=== PATIENT | female | born 1930 | race Caucasian/White ===

== ENCOUNTER 2017-08-23 16:47 | Emergency (ER) | payer OTHER ==
[~2017-08-23] VITALS: Ht 147.3 cm; Wt 60.0 kg
[2017-08-23] MEDS ORDERED: ASPI-516 CHEW (17:09)
[2017-08-23] MEDS ORDERED: SIMV20TA PO (17:09)
[2017-08-23] MEDS ORDERED: CALC1TAB12 PO (17:09)
[2017-08-23 17:10] VITALS: BP 175/91; PULSE 86; RESP 18; TEMP 98.5; O2SAT 98
[2017-08-23] MEDS ORDERED: ONDANSETRON ODT 4 MG TAB PO ONE (17:15)
--- NOTE | 2017-08-23 17:44 | RADRPT ---
EXAM DATE/TIME: 08/23/2017 17:20 [facility] COMPARISON: No previous studies available for comparison. INDICATIONS : Fell backwards hitting head on pavement.Pain back of head and neck. RADIATION DOSE: 57.57 CTDIvol (mGy) MEDICAL HISTORY : Hypercholesterolemia. Osteopenia SURGICAL HISTORY : Non listed ENCOUNTER: Initial ACUITY: 1 day PAIN SCALE: 3/10 LOCATION: occipital TECHNIQUE: Multiple contiguous axial images were obtained of the head. Using automated exposure control and adj ustment of the mA and/or kV according to patient size, radiation dose was kept as low as reasonably a chievable to obtain optimal diagnostic quality images. DICOM format image data is available electro nically for review and comparison. FINDINGS: CEREBRUM: The ventricles are normal for age. No evidence of midline shift, mass lesion, hemorrhage or acute in farction. No extra-axial fluid collections are seen. POSTERIOR FOSSA: The cerebellum and brainstem are intact. The 4th ventricle is midline. The cerebellopontine angle i s unremarkable. EXTRACRANIAL: The visualized portion of the orbits is intact. SKULL: The calvaria is intact. Occipital cephalhematoma No evidence of skull fracture. CONCLUSION: Intracranial cranial contents are unremarkable. Occipital cephalhematoma without fracture Darren Snyder MD FACR on August 23, 2017 at 17:41 Board Certified Radiologist. This report was verified electronically.
--- NOTE | 2017-08-23 17:59 | RADRPT ---
EXAM DATE/TIME: 08/23/2017 17:20 [facility] COMPARISON: No previous studies available for comparison. INDICATIONS : Fell backwards hitting her head on the pavement. RADIATION DOSE: 25.29 CTDIvol (mGy) MEDICAL HISTORY : Hypercholesterolemia. Osteopenia SURGICAL HISTORY : Non listed ENCOUNTER: Initial ACUITY: 1 day PAIN SCALE: 3/10 LOCATION: posterior neck TECHNIQUE: Volumetric scanning of the cervical spine was performed. Multiplanar reconstructions in the sagittal, coronal and oblique axial planes were performed. Using automated exposure control and adjustment o f the mA and/or kV according to patient size, radiation dose was kept as low as reasonably achievable to obtain optimal diagnostic quality images. DICOM format image data is available electronically f or review and comparison. FINDINGS: VERTEBRAE: Normal vertebral body height. ALIGNMENT: No evidence of subluxation. C2-C3: The bony spinal canal is normal in size. No evidence of disc bulge or herniation. The neural forami na are bilaterally patent. C3-C4: The bony spinal canal is normal in size. No evidence of disc bulge or herniation. The neural forami na are bilaterally patent. C4-C5: There isridging present with mild bilateral neural foramina encroachment. C5-C6: Interspace which is present mild spinal stenosis and moderate bilateral neural foramina encroachment. C6-C7: The bony spinal canal is normal in size. No evidence of disc bulge or herniation. The neural forami na are bilaterally patent. C7-T1: The bony spinal canal is normal in size. No evidence of disc bulge or herniation. The neural forami na are bilaterally patent. Prominent 1.7 cm left thyroid mass. CONCLUSION: 1. Degenerative changes, negative for fracture 2. 1.7 cm left thyroid mass. Darren Snyder MD FACR on August 23, 2017 at 17:43 Board Certified Radiologist. This report was verified electronically.
[2017-08-23] MEDS ORDERED: CYCL10TA PO (18:21)
[2017-08-23] MEDS ORDERED: ZOFR4TAB PO (18:21)
--- NOTE | 2017-08-23 18:21 | PD ---
HPI Chief Complaint: Fall Time Seen by Provider: 17:00 Travel History International Travel<30 days: No Contact w/Intl Traveler<30days: No Traveled to known affect area: No History of Present Illness HPI Patient presents with complaints of head trauma. States she felt her was falling forward and reached to grab him when in actuality he was falling backward onto him and then her. She fell to her bottom and back hitting her head on the cement. Denies loss of consciousness. Reports mild nausea. Complains of neck pain. PFSH Past Medical History High Cholesterol: Yes Musculoskeletal: Yes (OSTEOPENIA) Influenza Vaccination: No ?: Not Social History Alcohol Use: Yes (SOCIALLY) Tobacco Use: No Substance Use: No Allergies-Medications (Allergen,Severity, Reaction): Coded Allergies: Sulfa (Sulfonamide Antibiotics) (Verified Allergy, Intermediate, Rash, ) Reported Meds & Prescriptions Reported Meds & Active Scripts Active Reported Calcium 500 +D (Calcium Carbonate-Cholecalciferol) 500-400 Mg-Unit Tab 1 Tab PO DAILY Aspirin 81 Mg Chew 81 Mg CHEW DAILY Simvastatin 20 Mg Tab 20 Mg PO DAILY Review of Systems General / Constitutional: No: Fever Eyes: No: Visual changes HENT: No: Headaches Cardiovascular: No: Chest Pain or Discomfort Respiratory: No: Shortness of Breath Gastrointestinal: No: Abdominal Pain Genitourinary: No: Dysuria Musculoskeletal: No: Pain Skin: No Rash Neurologic: No: Weakness Psychiatric: No: Depression Endocrine: No: Polydipsia Hematologic/Lymphatic: No: Easy Bruising Physical Exam Narrative GENERAL: Well-nourished, well-developed patient. SKIN: Focused skin assessment warm/dry. HEAD: Normocephalic. Hematoma noted to the occipital region Examination of cervical spine reveals midline and bilateral paraspinous pain with good upper extremity strength EYES: No scleral icterus. No injection or drainage. Pupils equal round reactive light accommodation NECK: Supple, trachea midline. No JVD or lymphadenopathy. CARDIOVASCULAR: Regular rate and rhythm without murmurs, gallops, or rubs. RESPIRATORY: Breath sounds equal bilaterally. No accessory muscle use. GASTROINTESTINAL: Abdomen soft, non-tender, nondistended. MUSCULOSKELETAL: No cyanosis, or edema. BACK: Nontender without obvious deformity. No CVA tenderness. Data Data Last Documented VS Vital Signs Date Time Temp Pulse Resp B/P (MAP) Pulse Ox O2 Delivery O2 Flow Rate FiO2 08/23/17 17:10 98.5 86 18 175/91 (119) [address] Brain W/O Iv Contrast(Rout) (08/23/17 ) Ct Cerv Spine W/O Contrast (08/23/17 ) Ondansetron Odt (Zofran Odt) (08/23/17 17:15) Ice/Cold Pack (08/23/17 17:10) MDM Medical Decision Making Medical Screen Exam Complete: Yes Emergency Medical Condition: Yes Differential Diagnosis Hematoma, intracranial bleed, vertebral fracture Narrative Course Assessment plan discussed with patient and daughter at bedside. CT of the brain was unremarkable for intracranial process, CT of cervical spine did not reveal any acute fractures. Nausea controlled with Zofran. Diagnosis Primary Impression: Scalp hematoma Qualified Codes: S00.03XA - Contusion of scalp, initial encounter Additional Impression: Cervical strain Qualified Codes: S16.1XXA - Strain of muscle, fascia and tendon at neck level , initial encounter Patient Instructions: General Instructions Additional Instructions: Encouraged ice to hematoma, encouraged nonsteroidal anti-inflammatory warm heat gentle stretching strengthening and massage to neck. Follow-up with PCP. Return to emerge from with any onset of new symptoms. Med/Other Pt SpecificInfo: Prescription(s) given Scripts Cyclobenzaprine (Flexeril) 10 Mg Tab 10 MG PO TID for Muscle Spasm, #20 TAB 0 Refills Prov: Venkat Georges MD 08/23/17 Ondansetron (Zofran) 4 Mg Tab 4 MG PO Q6HR Y for NAUSEA OR VOMITING, #20 TAB 0 Refills Prov: Venkat Georges MD 08/23/17 Disposition: 01 DISCHARGE HOME Condition: Good Venkat Georges MD Aug 23, 2017 18:21
[2017-08-23 18:38] VITALS: BP 158/63; PULSE 84; RESP 12; O2SAT 98
== END 2017-08-23 18:42 | disposition home or self-care (01) ==
LOC: PHED 16:47
DX: S00.03XA Contusion of scalp, initial encounter (principal); S16.1XXA Strain of muscle, fascia and tendon at neck level, initial encounter; E78.00 Pure hypercholesterolemia, unspecified; W19.XXXA Unspecified fall, initial encounter
CPT/HCPCS: 70450; 72125; 99284

== ENCOUNTER 2017-08-25 17:37 | Observation (INO) | payer MEDICARE, OTHER ==
[~2017-08-25] VITALS: Ht 147.3 cm; Wt 57.3 kg
[2017-08-25] VITALS (9 sets, daily range): BP systolic 137–202; BP diastolic 67–104; PULSE 78–125; RESP 14–20; TEMP 98.4; O2SAT 92–98
[~2017-08-25 17:37] MED LIST: ASPI-516 CHEW; CALC1TAB12 PO; CYCL10TA PO; SIMV20TA PO; ZOFR4TAB PO
[2017-08-25] MEDS ORDERED: SODIUM CHLOR 0.9% 1000 ML INJ 1,000 ML IV ONE (17:44)
[2017-08-25] MEDS ORDERED: LABETALOL HCL 100 MG/20 ML VIAL IV PUSH PRN (17:45)
--- NOTE | 2017-08-25 17:53 | PD ---
HPI Chief Complaint: Numbness/Tingling Time Seen by Provider: 17:44 Travel History International Travel<30 days: No Contact w/Intl Traveler<30days: No Traveled to known affect area: No History of Present Illness HPI Patient gives a history of a fall and striking her head last Friday. However today while she was driving home approximately an hour or so ago she started to develop generalized weakness, tingling bilaterally to her extremities, associated with palpitations as well.... patient denies any headache/photophobia /nausea/vomiting. Patient states the symptoms have now largely resolved. Patient states allergy to sulfa Past medical history significant for hypercholesterolemia, and osteopenia only. [facility] Past Medical History High Cholesterol: Yes Musculoskeletal: Yes (OSTEOPENIA) Social History Alcohol Use: Yes (SOCIALLY) Tobacco Use: No Substance Use: No Allergies-Medications (Allergen,Severity, Reaction): Coded Allergies: Sulfa (Sulfonamide Antibiotics) (Verified Allergy, Intermediate, Rash, ) Reported Meds & Prescriptions Reported Meds & Active Scripts Active Flexeril (Cyclobenzaprine HCl) 10 Mg Tab 10 Mg PO TID Zofran (Ondansetron HCl) 4 Mg Tab 4 Mg PO Q6HR PRN Reported Calcium 500 +D (Calcium Carbonate-Cholecalciferol) 500-400 Mg-Unit Tab 1 Tab PO DAILY Aspirin 81 Mg Chew 81 Mg CHEW DAILY Simvastatin 20 Mg Tab 20 Mg PO DAILY Review of Systems Neurologic: Positive: Weakness, Paresthesia (Generalized) Physical Exam Narrative GENERAL: SKIN: Warm and dry. HEAD: Atraumatic. Normocephalic. EYES: Pupils equal and round. No scleral icterus. No injection or drainage. ENT: No nasal bleeding or discharge. Mucous membranes pink and moist. NECK: Trachea midline. No JVD. CARDIOVASCULAR: Tachycardic with regular rhythm. RESPIRATORY: No accessory muscle use. Clear to auscultation. Breath sounds equal bilaterally. GASTROINTESTINAL: Abdomen soft, non-tender, nondistended. MUSCULOSKELETAL: Extremities without clubbing, cyanosis, or edema. No obvious deformities. NEUROLOGICAL: Awake and alert. No obvious cranial nerve deficits. Motor grossly within normal limits. Five out of 5 muscle strength in the arms and legs. Normal speech. PSYCHIATRIC: Appropriate mood and affect; insight and judgment normal. Data Data Last Documented VS Vital Signs Date Time Temp Pulse Resp B/P (MAP) Pulse Ox O2 Delivery O2 Flow Rate FiO2 08/25/17 19:08 96 20 149/70 (96) 98 08/25/17 18:40 Nasal Cannula 2.00 08/25/17 17:44 98.4 Orders Orders Cath For Specimen (08/25/17 17:44) Neuro Checks Q2HX12,Q4H (08/25/17 17:44) Nursing Bedside Swallow Assess .ONCE (08/25/17 17:44) Activity Bed Rest (08/25/17 17:44) Diet Npo (08/25/17 Dinner) Prothrombin Time / Inr (Pt) (08/25/17 17:44) Act Partial Throm Time (Ptt) (08/25/17 17:44) Complete Blood Count With Diff (08/25/17 17:44) Basic Metabolic Panel (Bmp) (08/25/17 17:44) Fibrinogen (08/25/17 17:44) Creatine Kinase (Cpk) (08/25/17 17:44) Troponin I (08/25/17 17:44) Ua Includes Microscopic (08/25/17 17:44) Drug Screen, Random Urine (08/25/17 17:44) Type And Screen (08/25/17 17:44) Ct Brain W/O Iv Contrast(Rout) (08/25/17 ) Chest, Single Ap (08/25/17 ) Electrocardiogram (08/25/17 ) Consult Neurology (08/25/17 17:44) Sodium Chlor 0.9% 1000 Ml Inj (Ns 1000 M (08/25/17 17:44) Blood Glucose (08/25/17 17:44) Ecg Monitoring (08/25/17 17:44) Iv Access Insert/Monitor (08/25/17 17:44) NPO (08/25/17 17:44) Oximetry (08/25/17 17:44) Resp Oxygen Nc Stroke (08/25/17 ) Labetalol Inj (Trandate Inj) (08/25/17 17:45) (Hub Use Only)Inp Phy Cons/Ref (08/25/17 ) CKMB (08/25/17 17:50) CKMB% (08/25/17 17:50) Labs Laboratory Tests Test 08/25/17 17:50 White Blood Count 7.8 TH/MM3 Red Blood Count 4.13 MIL/MM3 Hemoglobin 11.9 GM/DL Hematocrit 36.3 % Mean Corpuscular Volume 88.0 FL Mean Corpuscular Hemoglobin 28.9 PG Mean Corpuscular Hemoglobin Concent 32.9 % Red Cell Distribution Width 12.6 % Platelet Count 397 TH/MM3 Mean Platelet Volume 6.4 FL Neutrophils (%) (Auto) 55.0 % Lymphocytes (%) (Auto) 29.8 % Monocytes (%) (Auto) 6.6 % Eosinophils (%) (Auto) 8.1 % Basophils (%) (Auto) 0.5 % Neutrophils # (Auto) 4.4 TH/MM3 Lymphocytes # (Auto) 2.3 TH/MM3 Monocytes # (Auto) 0.5 TH/MM3 Eosinophils # (Auto) 0.6 TH/MM3 Basophils # (Auto) 0.0 TH/MM3 CBC Comment DIFF FINAL Differential Comment Prothrombin Time 9.7 SEC Prothromb Time International Ratio 1.0 RATIO Activated Partial Thromboplast Time 29.6 SEC Blood Urea Nitrogen 17 MG/DL Creatinine 1.10 MG/DL Random Glucose 88 MG/DL Calcium Level 8.9 MG/DL Sodium Level 129 MEQ/L Potassium Level 4.8 MEQ/L Chloride Level 96 MEQ/L Carbon Dioxide Level 23.6 MEQ/L Anion Gap 9 MEQ/L Estimat Glomerular Filtration Rate 47 ML/MIN Total Creatine Kinase 599 U/L Creatine Kinase MB 4.4 NG/ML Creatine Kinase MB % 0.7 % Troponin I LESS THAN 0.02 NG/ML MDM Medical Decision Making Medical Screen Exam Complete: Yes Emergency Medical Condition: Yes Medical Record Reviewed: Yes Interpretation(s) EKG shows sinus tachycardia at 112 bpm, RI is slightly prolonged at 208 ms, no evidence of any STEMI pattern is noted. Differential Diagnosis TIA versus arrhythmia versus CVA versus hyperthyroidism versus electrolyte imbalance versus hypertensive emergency Narrative Course Upon chart review it is noted that the patient had a fall was mechanical in nature on August 23 when the patient had a CT head CT cervical spine. During the CT cervical spine is noted that the patient had a 1.7 cm left thyroid mass, this may be the reason why the patient is arriving with sinus tachycardia and hypertension. As well as some of the paresthesia symptoms that the patient feels and the generalized weakness may be an early sign of thyrotoxicosis or hyperthyroid activity. The patient will be admitted for a TIA workup but I would highly recommend that the medicine team also performe thyroid profile Critical Care Narrative CRITICAL CARE NOTE: With evaluation of the patient, labs, EKG, receipt of radiologic studies, administration of medications, reevaluation the patient and discussion of the patient with the admitting physicians, the total critical care time was [45] minutes. Time to perform other separately billable procedures was not included in the critical care time. Diagnosis Primary Impression: TIA Additional Impression: Suspect new onset thyroid disorder Admitting Information Admitting Physician Requests: Observation Oscar De La Paz MD Aug 25, 2017 17:53
[2017-08-25 18:12] LABS: AUTOMATED NEUTROPHIL # 4.4 TH/MM3 (1.8-7.7); BASOPHIL % 0.5 % (0.0-2.0); EOSINOPHIL # 0.6 TH/MM3 (0-0.4); EOSINOPHIL % 8.1 % (0.0-4.0); HEMATOCRIT 36.3 % (35.0-46.0); HEMOGLOBIN 11.9 GM/DL (11.6-15.3); LYMPH % 29.8 % (9.0-44.0); LYMPHOCYTE # 2.3 TH/MM3 (1.0-4.8); MEAN CORPUSCULAR HEMOGLOBIN 28.9 PG (27.0-34.0); MEAN CORPUSCULAR HGB CONC 32.9 % (32.0-36.0); MEAN PLATELET VOLUME 6.4 FL (7.0-11.0); MONO % 6.6 % (0.0-8.0); MONOCYTE # 0.5 TH/MM3 (0-0.9); PLATELET COUNT 397 TH/MM3 (150-450); RED BLOOD COUNT 4.13 MIL/MM3 (4.00-5.30); RED CELL DISTRIBUTION WIDTH 12.6 % (11.6-17.2); WHITE BLOOD COUNT 7.8 TH/MM3 (4.0-11.0)
[2017-08-25 18:20] LABS: CHLORIDE 96 MEQ/L (98-107); SODIUM (NA) 129 MEQ/L (136-145)
[2017-08-25 18:23] LABS: BICARBONATE 23.6 MEQ/L (21.0-32.0); CALCIUM 8.9 MG/DL (8.5-10.1); GLUCOSE,RANDOM 88 MG/DL (74-106)
[2017-08-25 18:24] LABS: BLOOD UREA NITROGEN 17 MG/DL (7-18); PROTHROMBIN TIME - PATIENT 9.7 SEC (9.8-11.6)
[2017-08-25 18:27] LABS: GLOMERULAR FILTRATION RATE 47 ML/MIN (>89)
[2017-08-25 18:31] LABS: TROPONIN I LESS THAN 0.02 NG/ML (0.02-0.05)
--- NOTE | 2017-08-25 18:50 | RADRPT ---
EXAM DATE/TIME: 08/25/2017 18:03 [facility] COMPARISON: No previous studies available for comparison. INDICATIONS : Elevated blood pressure and weakness. MEDICAL HISTORY : Hypercholesterolemia. SURGICAL HISTORY : None. ENCOUNTER: Initial ACUITY: 1 day PAIN SCORE: 0/10 LOCATION: Bilateral chest FINDINGS: A single view of the chest demonstrates the lungs to be symmetrically aerated without evidence of mas s, infiltrate or effusion. Minimal basal atelectasis. The cardiomediastinal contours are unremarkabl e. Osseous structures are intact. CONCLUSION: 1. Minimal basal atelectasis. No effusions. No pneumothorax. Jovany Stahl MD on August 25, 2017 at 18:47 Board Certified Radiologist. This report was verified electronically.
--- NOTE | 2017-08-25 19:44 | RADRPT ---
EXAM DATE/TIME: 08/25/2017 19:26 [facility] COMPARISON: No previous studies available for comparison. INDICATIONS : Tingling and elevated blood pressure. RADIATION DOSE: 59.66 CTDIvol (mGy) MEDICAL HISTORY : Hypercholesterolemia. SURGICAL HISTORY : None. ENCOUNTER: Initial ACUITY: 1 day PAIN SCALE: 0/10 LOCATION: cranial TECHNIQUE: Multiple contiguous axial images were obtained of the head. Using automated exposure control and adj ustment of the mA and/or kV according to patient size, radiation dose was kept as low as reasonably a chievable to obtain optimal diagnostic quality images. DICOM format image data is available electro nically for review and comparison. FINDINGS: CEREBRUM: The ventricles are normal for age. No evidence of midline shift, mass lesion, hemorrhage or acute in farction. No extra-axial fluid collections are seen. POSTERIOR FOSSA: The cerebellum and brainstem are intact. The 4th ventricle is midline. The cerebellopontine angle i s unremarkable. EXTRACRANIAL: The visualized portion of the orbits is intact. SKULL: The calvaria is intact. No evidence of skull fracture. CONCLUSION: 1. No acute intracranial abnormalities. Subcutaneous occipital hematoma. Jovany Stahl MD on August 25, 2017 at 19:40 Board Certified Radiologist. This report was verified electronically.
[2017-08-25 19:57] LABS: BILIRUBIN, URINE NEG (NEG); BLOOD, URINE NEG (NEG); GLUCOSE,URINE NEG (NEG); KETONE, URINE TRACE mg/dL (NEG); NITRITE,URINE POS (NEG); URINE COLOR YELLOW (YELLW/STRAW); URINE LEUKOCYTE ESTERASE MOD (NEG)
[2017-08-25 20:08] LABS: BACTERIA, URINE MANY /hpf; RBC, URINE 0-3 /hpf (0-3); SQUAMOUS EPITHELIAL CELL URINE 0-5 /hpf (0-5); WHITE BLOOD CELL CLUMPS FEW
[2017-08-25] MEDS ORDERED: SODIUM CHLORIDE 0.9% FLUSH 10 ML FLUSH IV FLUSH PRN (21:00)
[2017-08-25] MEDS ORDERED: GLUCAGON 1 MG/ML VIAL OTHER PRN (21:00)
[2017-08-25] MEDS: SODIUM CHLORIDE 0.9% FLUSH 10 ML FLUSH IV FLUSH SCH (21:00)
[2017-08-25] MEDS ORDERED: cefTRIAXone INJ 1,000 MG in SODIUM CHLORIDE 0.9% INJ 100 ML IV SCH (21:00)
[2017-08-25] MEDS ORDERED: ENALAPRILAT 1.25 MG/ML VIAL IV PUSH PRN (21:00)
[2017-08-25] MEDS ORDERED: DEXTROSE 50% IN WATER 50 ML VIAL(D50) IV PUSH PRN (21:00)
[2017-08-25] MEDS: INSULIN ASPART SUPPLEMENTAL SCALE SQ SCH (23:10)
[2017-08-25 23:27] LABS: FREE T4 1.05 NG/DL (0.76-1.46)
[2017-08-26] VITALS (9 sets, daily range): BP systolic 130–162; BP diastolic 63–93; PULSE 74–90; RESP 15–20; TEMP 96–98.2; O2SAT 96–99
[2017-08-26 07:49] LABS: AUTOMATED NEUTROPHIL # 2.7 TH/MM3 (1.8-7.7); BASOPHIL # 0.1 TH/MM3 (0-0.2); EOSINOPHIL # 0.5 TH/MM3 (0-0.4); EOSINOPHIL % 9.5 % (0.0-4.0); HEMATOCRIT 33.6 % (35.0-46.0); HEMOGLOBIN 10.7 GM/DL (11.6-15.3); LYMPH % 30.3 % (9.0-44.0); LYMPHOCYTE # 1.7 TH/MM3 (1.0-4.8); MEAN CELL VOLUME 88.2 FL (80.0-100.0); MEAN CORPUSCULAR HEMOGLOBIN 28.2 PG (27.0-34.0); MEAN PLATELET VOLUME 6.7 FL (7.0-11.0); MONO % 8.7 % (0.0-8.0); MONOCYTE # 0.5 TH/MM3 (0-0.9); NEUT % 50.5 % (16.0-70.0); PLATELET COUNT 383 TH/MM3 (150-450); RED BLOOD COUNT 3.81 MIL/MM3 (4.00-5.30); RED CELL DISTRIBUTION WIDTH 12.9 % (11.6-17.2); WHITE BLOOD COUNT 5.5 TH/MM3 (4.0-11.0)
[2017-08-26] MEDS: INSULIN ASPART SUPPLEMENTAL SCALE SQ SCH ×4 (08:00→20:12)
[2017-08-26 08:25] LABS: BICARBONATE 26.1 MEQ/L (21.0-32.0); CALCIUM 8.3 MG/DL (8.5-10.1); CREATININE 0.79 MG/DL (0.50-1.00)
[2017-08-26] MEDS: SODIUM CHLORIDE 0.9% FLUSH 10 ML FLUSH IV FLUSH SCH ×2 (08:27→20:12)
[2017-08-26] MEDS: PRAVASTATIN SOD 40 MG TAB PO SCH (09:00)
[2017-08-26] MEDS: ASPIRIN 325 MG TAB PO SCH (09:00)
--- NOTE | 2017-08-26 09:15 | RADRPT ---
EXAM DATE/TIME: 08/26/2017 08:20 [facility] COMPARISON: No previous studies available for comparison. INDICATIONS : Weakness, Paresthesia (Generalized). MEDICAL HISTORY : Hypercholesterolemia. Cardiovascular disease Thyroid Disease. Osteopenia. SURGICAL HISTORY : None. ENCOUNTER: Initial ACUITY: 1 day PAIN SCORE: 0/10 LOCATION: Bilateral neck PEAK SYSTOLIC VELOCITIES (cm/sec): ICA/CCA RATIO: Right: 1.3 Left: 1.0 ICA: Right: 112 Left: 90 CCA: Right: 87 Left: 90 ECA: Right: 110 Left: 110 VERTEBRAL: Right: 102 antegrade Left: 60 antegrade Elevated flow velocities and ICA/CCA ratios have been found to correlate with increased degrees of vessel stenosis, calculated as percentage of diameter relative to a normal segment of distal ICA/CCA FINDINGS: RIGHT CAROTID: No significant stenosis is visualized. The waveforms are within normal limits. LEFT CAROTID: Minimal calcified plaque is identified in the left carotid bifurcation. No significant stenosis is vi sualized. The waveforms are within normal limits. VERTEBRAL ARTERIES: Antegrade flow is seen in both vertebral arteries. MISCELLANEOUS: None. CONCLUSION: 1. Minimal plaque left carotid bifurcation. 2. No evidence of hemodynamically significant stenosis. 3. Antegrade flow in both vertebral arteries. Dilip Hutchison MD on August 26, 2017 at 9:11 Board Certified Radiologist. This report was verified electronically.
[2017-08-26 10:34] LABS: CHOLESTEROL/ HDL RATIO 2.19 RATIO; HDL CHOLESTEROL 75.1 MG/DL (40.0-60.0)
[2017-08-26] MEDS ORDERED: LORazepam 2 MG/ML VIAL IV PUSH PRN (11:15)
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
--- NOTE | 2017-08-26 12:12 | PD.CONS ---
History of Present Illness Service Neurology Consult Requested By Emergency medicine Reason for Consult Questionable TIA versus stroke Primary Care Physician Hadley Richards M.D. History of Present Illness 87-year-old female admitted to the hospital with generalized weakness and paresthesias. Patient notes that this past Friday she was holding a ladder for a friend as he trimmed a palm tree. The patient fell backwards and her friend fell on top of her, striking the patient's head on the ground. She came into the hospital for evaluation and went home with Flexeril for muscle cramping. Patient has had some soreness on the back of the scalp but denies any headache or visual disturbances. Patient states yesterday she started feeling generally weak and having tingling in all extremities, checked her blood pressure at home and it was elevated for her at 170s over 90s. For these reasons she came in for further evaluation in the hospital. The patient has a very limited history but does include hyperlipidemia, GERD, osteopenia, and reported hyponatremia. (Royer Santo) Review of Systems Constitutional: Negative except HPI Eye: Negative Except HPI ENMT: Negative except HPI Respiratory: Negative except HPI Cardiovascular: Negative except HPI Gastrointestinal: Negative except HPI Harvey/Lymph: Negative except HPI Musculoskeletal: Negative except HPI Neurologic: Negative except HPI Psychiatric: Negative except HPI All other ROS: ROS reviewed as documented in chart (Royer Santo) Past Family Social History Allergies: Coded Allergies: Sulfa (Sulfonamide Antibiotics) (Verified Allergy, Intermediate, Rash, ) Past Medical History Hyperlipidemia, osteopenia Past Surgical History Hysterectomy, left ankle fusion Reported Medications Calcium, Prilosec, statin Active Ordered Medications Current Medications Medications (Trade) Dose Ordered Sig/Shanelle Route Start Time Stop Time Status Last Admin (Trandate Inj) 5 mg Q5M PRN IV PUSH 08/25/17 17:45 08/25/17 18:26 Ceftriaxone Sodium 1000 mg/ Sodium Chloride 100 ml @ 200 mls/hr Q24H IV 08/25/17 21:00 08/25/17 22:34 (NS Flush) 2 ml BID IV FLUSH 08/25/17 21:00 (NS Flush) 2 ml UNSCH PRN IV FLUSH 08/25/17 21:00 (Aspirin) 325 mg DAILY PO 08/26/17 09:00 (NovoLOG SUPPLEMENTAL SCALE) 1 ACHS SQ 08/25/17 21:00 (D50w (Vial) Inj) 50 ml UNSCH PRN IV PUSH 08/25/17 21:00 (Glucagon Inj) 1 mg UNSCH PRN OTHER 08/25/17 21:00 (Pravachol) 40 mg DAILY PO 08/26/17 09:00 (Vasotec Inj) 1.25 mg Q4H PRN IV PUSH 08/25/17 21:00 (Ativan Inj) 1 mg ONCE PRN IV PUSH 08/26/17 11:15 08/26/17 23:00 Family History Son abdominal aortic aneurysm Social History Non-smoker, denies drinking to excess or using any recreational drug (Royer Santo) Exam I&O / VS Vital Signs Date Time Temp Pulse Resp B/P (MAP) Pulse Ox O2 Delivery O2 Flow Rate FiO2 08/26/17 08:00 98.2 82 15 156/90 (112) 97 08/26/17 04:00 96.5 77 18 130/65 (86) 97 08/26/17 00:00 96.3 74 18 157/77 (103) 98 08/25/17 23:45 98 Nasal Cannula 2.00 08/25/17 23:10 95 08/25/17 22:58 08/25/17 22:45 78 18 140/75 (96) 98 Nasal Cannula 2.00 08/25/17 21:50 80 141/70 (93) 97 08/25/17 20:13 87 96 Nasal Cannula 2.00 08/25/17 20:13 87 14 157/87 (110) 97 Nasal Cannula 2.00 08/25/17 19:08 96 20 149/70 (96) 98 08/25/17 18:40 87 14 137/67 (90) 92 Nasal Cannula 2.00 08/25/17 17:49 98 08/25/17 17:44 98.4 125 20 202/104 (136) 95 General: Alert and Oriented, No acute distress Eye: PERRL, EOMI Respiratory: Non-labored respirations, Symmetrical expansion Cardiology: Normal rate Neurologic: Alert, Oriented, Normal sensory, Normal motor, No focal defects, CN II-XII intact Psychiatric: Cooperative, Appropriate mood & affect, Normal judgement Exam Comments Alert, oriented 4, speech fluent, VFF, no temporal artery tenderness, no nystagmus, sensory intact pinprick throughout, no drift, no tremor, tone is normal, no dysmetria, MSR symmetrical and trace, no clonus, plantar flexor (Royer Santo) Review/Management Diagnosis/Plan: (1) Episode of generalized weakness ICD Codes: R53.1 - Weakness Plan: Rule out VBI, stroke CT brain no acute intracranial process MRI/MRA pending Patient was intermittently taking 81 mg aspirin at home Dehydration likely contributing factor, as well as Flexeril use (2) Dehydration with hyponatremia ICD Codes: E87.1 - Hypo-osmolality and hyponatremia Plan: GFR and sodium normalized after IV fluids (3) Thyroid nodule ICD Codes: E04.1 - Nontoxic single thyroid nodule Plan: Per attending, ultrasound workup pending Thyroid labs as noted (4) Cervicalgia ICD Codes: M54.2 - Cervicalgia Plan: MRI C-spine Patient has been using Flexeril, I advised to use sparingly (Royer Santo) Daily Summary d/w PA. agree with above. ok to d/c from neuro if mri's negative. bp control. hydration. outpatient f/u. (Danilo De Santiago MD) Royer Santo Aug 26, 2017 12:12 Danilo De Santiago MD Aug 26, 2017 21:35
[2017-08-26] MEDS ORDERED: CIPR-9 PO (12:35)
--- NOTE | 2017-08-26 13:54 | RADRPT ---
EXAM DATE/TIME: 08/26/2017 12:59 [facility] COMPARISON: No previous studies available for comparison. INDICATIONS : Thyroid nodule. MEDICAL HISTORY : Hypercholesterolemia. Thyroid mass. Cardiac disorders. Osteopenia. SURGICAL HISTORY : Hysterectomy. Cataract surgery. Ankle fusion. Bladder repair. ENCOUNTER: Initial ACUITY: Subacute PAIN SCORE: Zero LOCATION: Bilateral neck MEASUREMENTS: RIGHT LOBE: 3.9 x 1.2 x 1.1 cm LEFT LOBE: 4.4 x 1.2 x 1.5 cm FINDINGS: Multiple thyroid nodules present. On the left side is a dominant nodule measuring up to 2.1 cm solid well-circumscribed. 8mm cystic les ion present. On the right side there is a solid 5 mm nodule in the upper pole a solid 9 mm nodule in the midpole. Isthmus unremarkable. CONCLUSION: 1. Bilateral thyroid nodules. Dominant nodule is a heterogeneous circumscribed 2.1 cm nodule left lob e thyroid. Jovany Stahl MD on August 26, 2017 at 13:49 Board Certified Radiologist. This report was verified electronically.
[2017-08-26] MEDS: CIPROFLOXACIN 500 MG TAB PO SCH ×2 (14:20→20:12)
--- NOTE | 2017-08-26 14:36 | ECHRPT ---
Indication: CVA/TIA CONCLUSIONS Normal left ventricular size. Wall thickness is normal. The left ventricular systolic function is hyperdynamic with an estimated ejection fraction in the ra nge of 65- 70%. The left atrial size is severely dilated. Jnyjb-qr-brud mitral valve regurgitation. Aortic valve sclerosis is present. Trace aortic valve regurgitation. There is mild tricuspid valve regurgitation. The estimated pulmonary arterial pressure is 38.1 mmHg. BP: 130 / 65 HR: 77 Rhythm: Sinus MEASUREMENTS (Male / Female) Normal Values Technical Quality:Fair 2D ECHO LV Diastolic Diameter PLAX 4.6 cm 4.2 - 5.9 / 3.9 - 5.3 cm LV Systolic Diameter PLAX 3.1 cm IVS Diastolic Thickness 0.9 cm 0.6 - 1.0 / 0.6 - 0.9 cm LVPW Diastolic Thickness 0.9 cm 0.6 - 1.0 / 0.6 - 0.9 cm LV Relative Wall Thickness 0.4 RV Internal Dim ED PLAX 1.9 cm LVOT Diameter 1.8 cm Aortic Root Diameter 2.6 cm LA Systolic Diameter LX 3.1 cm 3.0 - 4.0 / 2.7 - 3.8 cm M-MODE AV Cusp Separation MM 1.7 cm DOPPLER AV Peak Velocity 112.0 cm/s AV Peak Gradient 5.0 mmHg AV Mean Gradient 3.0 mmHg AV Velocity Time Integral 24.9 cm AI Peak Velocity 446.0 cm/s AI Peak Gradient 79.6 mmHg AI Pressure Half Time 430.0 ms LVOT Peak Velocity 75.9 cm/s LVOT Peak Gradient 2.3 mmHg LVOT Velocity Time Integral 14.1 cm AV Area Cont Eq vti 1.4 cm AV Area Cont Eq pk 1.7 cm Mitral E Point Velocity 60.7 cm/s Mitral A Point Velocity 111.0 cm/s Mitral E to A Ratio 0.5 LV E' Lateral Velocity 6.3 cm/s Mitral E to LV E' Lateral Ratio 9.6 LV E' Septal Velocity 6.7 cm/s Mitral E to LV E' Septal Ratio 9.0 TR Peak Velocity 265.0 cm/s TR Peak Gradient 28.1 mmHg Right Atrial Pressure 10.0 mmHg Pulmonary Artery Systolic Pressu 38.1 mmHg Right Ventricular Systolic Press 38.1 mmHg PV Peak Velocity 62.4 cm/s PV Peak Gradient 1.6 mmHg FINDINGS LEFT VENTRICLE Normal left ventricular size. Wall thickness is normal. The left ventricular systolic function is hyperdynamic with an estimated ejection fraction in the ra nge of 65- 70%. RIGHT VENTRICLE Normal right ventricular size and systolic function. LEFT ATRIUM The left atrial size is severely dilated. RIGHT ATRIUM The right atrial size is normal. ATRIAL SEPTUM No atrial level shunt is demonstrated by color flow Doppler interrogation. AORTA The aortic root and proximal ascending aorta are not well visualized. MITRAL VALVE Jucnw-de-vyhe mitral valve regurgitation. AORTIC VALVE Aortic valve sclerosis is present. Trace aortic valve regurgitation. TRICUSPID VALVE There is mild tricuspid valve regurgitation. The estimated pulmonary arterial pressure is 38.1 mmHg. PULMONARY VALVE No pulmonary valve regurgitation or stenosis. VESSELS The inferior vena cava is normal in size. PERICARDIUM No pericardial effusion. Hugo Granados MD, FACC, [facility] (Electronically Signed) Final Date:26 August 2017 14:35
--- NOTE | 2017-08-26 14:40 | EKG ---
Date Performed: 08/25/2017 Time Performed: 17:56:23 PTAGE: 87 years EKG: SINUS TACHYCARDIA ABNORMAL RHYTHM ECG NO PREVIOUS TRACING DOCTOR: Steven Verma Interpretating Date/Time 08/26/2017 14:37:43
--- NOTE | 2017-08-26 16:21 | RADRPT ---
EXAM DATE/TIME: 08/26/2017 15:24 [facility] COMPARISON: No previous studies available for comparison. INDICATIONS : Tingling in extremities. MEDICAL HISTORY : None. SURGICAL HISTORY : Hysterectomy. Cataract. Ankle surgery. ENCOUNTER: Initial ACUITY: 1 day PAIN SCORE: 0/10 LOCATION: head TECHNIQUE: Multiplanar, multisequence MRI of the brain was performed without contrast. FINDINGS: CEREBRUM: The ventricles are normal for age. No evidence of midline shift, mass lesion, hemorrhage or acute in farction. No extraaxial fluid collections are seen. The pituitary gland and suprasellar cistern are normal in configuration. WHITE MATTER: Moderate signal abnormalities are seen in the white matter. There is confluent periventricular T2 hyp erintensity and scattered foci of hyperintensity throughout the subcortical and deep white matter tra cks. POSTERIOR FOSSA: The cerebellum and brainstem are intact. The 4th ventricle is midline. The cerebellopontine angle is unremarkable. The cerebellar tonsils are normal in position. DIFFUSION IMAGING: No focal areas of restricted diffusion are seen. No evidence of acute infarction. EXTRACRANIAL: The visualized portions of the orbits and paranasal sinuses are unremarkable. CONCLUSION: 1. Moderate cerebral white matter disease ureters that of chronic microvascular ischemic changes. 2. No evidence of acute infarct, hemorrhage, mass or edema. Dilip Hutchison MD on August 26, 2017 at 16:16 Board Certified Radiologist. This report was verified electronically.
--- NOTE | 2017-08-26 16:39 | RADRPT ---
EXAM DATE/TIME: 08/26/2017 15:24 [facility] COMPARISON: No previous studies available for comparison. INDICATIONS : Tingling in extremities. MEDICAL HISTORY : None. SURGICAL HISTORY : Hysterectomy. Ankle surgery/Cataract. ENCOUNTER: Initial ACUITY: 2 day PAIN SCORE: 0/10 LOCATION: neck TECHNIQUE: Multiplanar, multisequence MRI examination of the cervical spine was performed. FINDINGS: There is moderate degenerative disc disease throughout the cervical spine. Posterior osteophytic ridg ing is present effacing the thecal sac around the cord. No acute fracture or spondylolisthesis. No pr evertebral soft tissue swelling. Mild compression deformities in the upper thoracic spine. CONCLUSION: 1. Moderate degenerative disc disease. No cord impingement and no cord signal abnormalities. No signi ficant nerve root compression is identified. 2. Incidental note made of mild superior endplate compression deformities at T1, T2 and T3. There is some edema at T1 and T3 and these may represent subacute fractures. Jovany Stahl MD on August 26, 2017 at 16:30 Board Certified Radiologist. This report was verified electronically.
--- NOTE | 2017-08-26 17:03 | RADRPT ---
EXAM DATE/TIME: 08/26/2017 15:24 [facility] COMPARISON: No previous studies available for comparison. INDICATIONS : Tingling in extremities. MEDICAL HISTORY : None. SURGICAL HISTORY : Hysterectomy. Ankle surgery. ENCOUNTER: Initial ACUITY: 2 day PAIN SCORE: 0/10 LOCATION: head Please note a normal MRA of the brain does not entirely exclude the possibility of a small aneurysm, nor the possibility of distal intracranial vessel disease. TECHNIQUE: 3D time of flight MRA was performed. Source images, multiplanar STS MIP, and 3D volume MIP reconstru ctions were reviewed. FINDINGS: There is excellent visualization of the major intracranial arteries out to the second-order branch ve ssels. There is no evidence for aneurysm, vessel truncation or stenosis, and no evidence for vascula r malformation. CONCLUSION: Normal examination. Aditya Chávez MD on August 26, 2017 at 16:59 Board Certified Radiologist. This report was verified electronically.
[2017-08-27] VITALS: BP 117/56; PULSE 87; RESP 20; TEMP 96; O2SAT 94
[2017-08-27 04:00] VITALS: BP 131/59; PULSE 82; RESP 20; TEMP 96.6; O2SAT 95
[2017-08-27 07:45] VITALS: O2SAT 93
[2017-08-27] MEDS: INSULIN ASPART SUPPLEMENTAL SCALE SQ SCH ×2 (08:00→12:00)
[2017-08-27 08:43] VITALS: BP 128/61; PULSE 88; RESP 14; TEMP 96.1; O2SAT 95
[2017-08-27] MEDS: SODIUM CHLORIDE 0.9% FLUSH 10 ML FLUSH IV FLUSH SCH (09:29)
[2017-08-27] MEDS: PRAVASTATIN SOD 40 MG TAB PO SCH (09:30)
[2017-08-27] MEDS: CIPROFLOXACIN 500 MG TAB PO SCH (09:30)
[2017-08-27] MEDS: ASPIRIN 325 MG TAB PO SCH (09:30)
--- NOTE | 2017-08-27 09:41 | RADRPT ---
EXAM DATE/TIME: 08/26/2017 13:09 [facility] COMPARISON: No previous studies available for comparison. INDICATIONS : Abdominal pain. MEDICAL HISTORY : Hypercholesterolemia. Thyroid mass. Cardiac disorders. Osteopenia. SURGICAL HISTORY : Hysterectomy. Cataract surgery. Ankle fusion. Bladder repair. ENCOUNTER: Initial ACUITY: 1 day PAIN SCORE: 0/10 LOCATION: Abdomen. MEASUREMENTS: (AP x TRANSVERSE) PROXIMAL: 2.1 x 2.1 cm MID: 1.7 x 1.6 cm DISTAL: 1.6 x 1.1 cm RIGHT ILIAC: 0.7 x 0.8 cm LEFT ILIAC: 1.0 x 0.7 cm FINDINGS: AORTA: There is atherosclerotic changes in the aorta. No aneurysmal dilatation is demonstrated. IVC: Within normal limits. CONCLUSION: There are atherosclerotic changes in the aorta. No aneurysmal dilatation. Anastacio Cordova MD on August 27, 2017 at 9:39 Board Certified Radiologist. This report was verified electronically.
[2017-08-27 12:00] VITALS: BP 137/60; PULSE 89; RESP 14; TEMP 96.7; O2SAT 95
--- NOTE | 2017-08-27 13:03 | HHI.DCPOC ---
Discharge Care Plan Diagnosis: (1) Episode of generalized weakness (2) Dehydration with hyponatremia (3) Dysphagia Goals to Promote Your Health * To prevent worsening of your condition and complications * To maintain your health at the optimal level Directions to Meet Your Goals Take your medications as prescribed Follow your dietary instruction Follow activity as directed Keep your appointments as scheduled Take your immunizations and boosters as scheduled If your symptoms worsen call your PCP, if no PCP go to Urgent Care Center or Emergency Room Smoking is Dangerous to Your Health. Avoid second hand smoke Call the 24-hour hour crisis hotline for domestic abuse at Patrice Owens Aug 27, 2017 13:03
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
[2017-08-27 20:40] LABS: HEMOGLOBIN A1C 5.6 % (4.3-6.0)
== END 2017-08-27 13:00 | disposition home or self-care (01) ==
LOC: PHEFT 17:37 → PHEDA 20:09 → PH3A 23:13
PROVIDERS: ADMIT Hospitalist; ATTEND Hospitalist
DX: R53.1 Weakness (principal); E86.0 Dehydration; E87.1 Hypo-osmolality and hyponatremia; R13.10 Dysphagia, unspecified; R20.0 Anesthesia of skin; R11.0 Nausea; R51 Headache; M54.2 Cervicalgia; R94.31 Abnormal electrocardiogram [ECG] [EKG]; I07.1 Rheumatic tricuspid insufficiency; I35.8 Other nonrheumatic aortic valve disorders; N39.0 Urinary tract infection, site not specified; R03.0 Elevated blood-pressure reading, without diagnosis of hypertension; E78.00 Pure hypercholesterolemia, unspecified; E04.1 Nontoxic single thyroid nodule; K21.9 Gastro-esophageal reflux disease without esophagitis; N17.9 Acute kidney failure, unspecified; R20.2 Paresthesia of skin; R00.0 Tachycardia, unspecified; M85.80 Other specified disorders of bone density and structure, unspecified site; Z79.899 Other long term (current) drug therapy; Z79.82 Long term (current) use of aspirin
CPT/HCPCS: 70450; 70544; 70551; 71045; 72141; 76536; 76775; 80048; 80061; 80307; 81001; 82550; 82552; 82607; 82948; 83036; 84439; 84443; 84484; 85025; 85384; 85610; 85730; 86850; 86900; 86901; 87077; 87086; 87186; 93005; 93306; 93880; 96361; 96365; 96375; 97162; 97165; 99291; G0378; G8987; G8988; G8989; J0696; J2060; J7030